=== PATIENT | male | born 1940 ===

== ENCOUNTER 2016-09-11 09:34 | Day surgery (SDC) | payer MEDICARE, MEDICAID ==
[2016-09-11 10:49] VITALS: RESP 20
[2016-09-11 10:56] VITALS: BMI 30.1
[2016-09-11] MEDS ORDERED: Acetylcholine 1% Opth System Pack IO ONE ×2 (11:17→14:30)
[2016-09-11] MEDS ORDERED: Lidocaine 1% 20 MG/2 ML PF AMP ONE (11:18)
[2016-09-11] MEDS ORDERED: EPINEPHrine 1 mg/ml (1:1000) Inj ONE (11:18)
[2016-09-11] MEDS ORDERED: Mepivacaine HCl 2% (20ml) Inj ONE (11:20)
[2016-09-11] MEDS ORDERED: Hyaluronidase 200 UNITS/ML VIAL ONE (11:20)
[2016-09-11] MEDS ORDERED: Bupivacaine HCl 0.5% PF (10 ml) Inj ONE (11:21)
[2016-09-11] MEDS ORDERED: Lactated Ringer's 1,000 ML IV ONE (11:54)
[2016-09-11] MEDS ORDERED: Mepivacaine HCl 2% (20ml) Inj IJ ONE ×2 (12:20→14:20)
[2016-09-11] MEDS ORDERED: Hyaluronidase 200 UNITS/ML VIAL SC ONE ×2 (12:20→14:20)
[2016-09-11] MEDS ORDERED: Bupivacaine HCl 0.25% PF (10 ml) Inj IJ ONE ×2 (12:20→14:20)
[2016-09-11] MEDS ORDERED: Propofol 10 mg/ml Inj (20 ML) ONE (13:47)
[2016-09-11] MEDS ORDERED: Midazolam 2 MG/2 ML VIAL ONE (13:47)
[2016-09-11] MEDS ORDERED: Labetalol 5mg/ml (4ml) ONE (14:02)
[2016-09-11] MEDS ORDERED: Povidone Iodine 5% Opht SOLUTION OS ONE (14:21)
[2016-09-11] MEDS ORDERED: Chondroitin/Hyaluronate Opth Syringe KIT (0.55 ml-0.5 ml) IO ONE (14:23)
[2016-09-11] MEDS ORDERED: Tetracaine 0.5% Ophth 2 ML BOTTLE OS ONE (14:25)
[2016-09-11] MEDS ORDERED: Enalaprilat 2.5 MG/2 ML ONE (14:52)
[2016-09-11 16:40] VITALS: O2SAT 97
[2016-09-11 18:05] VITALS: BP 174/96; PULSE 86; TEMP 98.2
--- NOTE | 2016-10-30 15:53 | OP ---
Date: 09/11/16 Surgeon: Saad Simon M.D. 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 Under micro surgical control, the wide lid speculum was placed within the lids of the left eye. Under surgical microscope, a limbal based conjuncitval peritomy was made down to the bare sclera. Hemostasis was obtained with an eraser cautery. A triangular lamellar flap of the sclera with the base at the limbus west fashion. A pre-shunt was implanted and properly situated and visualized in the anterior chamber. An 8-0 Vicryl suture was utilized in a continuous fashion for closure of tenons fascia and the bulbar conjunctiva. This terminates the procedure. Maxitrol opthalmic suspension was applied to the eye Post-OP Condition: The patient was brought to the post anesthesia recovery with stable vital signs. [facility]ad [facility]
== END 2016-09-11 18:44 | disposition home or self-care (01) ==
LOC: H.OPSURG 09:34
PROVIDERS: ATTEND Ophthalmology
DX: H40.1133 Primary open-angle glaucoma, bilateral, severe stage (principal); E11.9 Type 2 diabetes mellitus without complications; I10 Essential (primary) hypertension; K21.9 Gastro-esophageal reflux disease without esophagitis; N40.0 Benign prostatic hyperplasia without lower urinary tract symptoms
CPT/HCPCS: 66183; 82948; J0171; J0360; J2250; J2405; J3010; J3470; J7120